=== PATIENT | male | born 1955 | race Caucasian/White ===

== ENCOUNTER 2020-04-11 15:49 | Emergency (ER) | payer OTHER ==
[~2020-04-11] VITALS: Ht 170.2 cm; Wt 81.2 kg
[2020-04-11 16:01] VITALS: Ht 170.2 cm; Wt 81.2 kg
[2020-04-11 16:29] LABS: BASOPHIL % 0.3 % (0-2); PLATELET COUNT 271 x10^3mcL (130-400); RED CELL DISTRIBUTION WIDTH 12.5 % (11.5-14.5)
[2020-04-11 16:46] LABS: CALCIUM 8.5 mg/dL (8.5-10.1); CARBON DIOXIDE 30.5 mmol/L (21-32); CHLORIDE SERUM 102 mmol/L (98-107); CREATININE SERUM 0.9 mg/dL (0.7-1.3); GFR1 > 60 mL/min; GLUCOSE SERUM 177 mg/dL (74-106); SODIUM SERUM 139 mmol/L (136-145)
[2020-04-11 16:50] LABS: ALBUMIN 3.7 g/dL (3.4-5.0); ALKALINE PHOSPHATASE 74 U/L (46-116); ALT/SGPT 38 U/L (16-63); AST/SGOT 21 U/L (15-37); BILIRUBIN TOTAL 0.4 mg/dL (0.20-1.00); LIPASE 266 IU/L (73-393); TOTAL PROTEIN, SERUM 7.6 g/dL (6.4-8.2)
[2020-04-11 18:27] VITALS: BP 147/81
== END 2020-04-11 18:24 | disposition home or self-care (01) ==
LOC: ED 15:49
PROVIDERS: Emergency Medicine
DX: K57.90 Diverticulosis of intestine, part unspecified, without perforation or abscess without bleeding (principal); K80.20 Calculus of gallbladder without cholecystitis without obstruction
CPT/HCPCS: G0480; J2405; J3010; J7030